=== PATIENT | female | born 1980 | race Caucasian/White ===

== ENCOUNTER 2017-08-05 18:22 | Emergency (ER) | payer MEDICAID ==
[~2017-08-05] VITALS: Ht 167.6 cm; Wt 76.5 kg
[2017-08-05 19:29] VITALS: BP 146/85; Ht 167.6 cm; Wt 76.5 kg
== END 2017-08-05 21:47 | disposition home or self-care (01) ==
LOC: ED 18:22
DX: S39.82XA Other specified injuries of lower back, initial encounter (principal); Z88.6 Allergy status to analgesic agent; W01.0XXA Fall on same level from slipping, tripping and stumbling without subsequent striking against object, initial encounter; Y93.89 Activity, other specified; Y92.89 Other specified places as the place of occurrence of the external cause; Y99.8 Other external cause status